=== PATIENT | male | born 1955 | race Caucasian/White ===

== ENCOUNTER 2016-08-31 15:41 | Emergency (ER) | payer SELFPAY ==
[~2016-08-31] VITALS: Ht 177.8 cm; Wt 58.8 kg
[~2016-08-31 15:41] MED LIST: CHOL200024 PO; CYAN10009 PO; MULT1TAB69 PO
--- OUTSIDE RECORDS SUMMARY | 2016-08-31 15:45 | XMS REPORT | Continuity of Care Document ---
Author Author [facility] Organization [facility] Address Unknown Phone Unavailable Support Name Relationship Address Phone JESUS LISA MD Caregiver [address] [place] [address] Unavailable MIGUEL LAY APRN Caregiver [address] [place] [address] Unavailable CARLOS LUNA Next Of Kin Unknown [phone] Insurance Providers Guarantor Reid Mckeon Address [address] [place] [address] Email NO TO PT [facility] [employer] Other Policy Number [id number] Subscriber's Name Reid Mckeon Relationship 18 Self Group Number [id number] Advance Directives Directive Response Recorded Date/Time Advanced Directives Type None 05/20/16 2:30pm Chief Complaint and Reason for Visit Chief Complaint Nausea,Vomiting,Diarrhea Reason for Visit Acute hypoactive alcohol withdrawal delirium Problems Active Problems Medical Problem Onset Date Status Minor head injury Unknown Acute Near syncope Unknown Acute Scalp laceration Unknown Acute Volume depletion Unknown Acute Past Problems Medical Problem Onset Date Acute hypoactive alcohol withdrawal delirium Unknown Alcohol dependence with withdrawal with complication Unknown Alcoholic hepatitis Unknown Malnutrition Unknown Medications Current Home Medications Medication Dose Units Route Directions Days Qty Instructions Start Date Cholecalciferol (Vitamin D3) (Vitamin D) Unknown Strength Tablet Unknown Dose Oral Daily 05/20/16 Cyanocobalamin (Vitamin B-12) (Vitamin B-12) Unknown Strength Tablet Unknown Dose Oral Daily 05/20/16 Multivitamin (Multivitamins) 1 Each Tablet 1 Tab Oral Daily 05/20 Social History Social History Problem Response Recorded Date/Time Onset Date Status Chewing Tobacco Status No 05/20/2016 2:30pm Not Applicable Not Applicable Hx Substance Use No 05/20/2016 2:30pm Not Applicable Not Applicable Hx Alcohol Use Y 5TH OF WHISKEY DAILY 05/20/2016 2:30pm Not Applicable Not Applicable Tobacco Usage smoke 07/10/2015 7:07am Not Applicable Not Applicable Query Response Start Date Stop Date Smoking Status Never smoker Hospital Discharge Instructions No hospital discharge instructions. Plan of Care Discharge Date 01/02/17 5:46pm Disposition 01 DISCHARGED HOME, SELF-CARE Condition at Discharge Improved Instructions/Education Provided Alcohol Use Disorder Prescriptions See Medication Section Referrals MIGUEL LAY APRN Address: [address] [place] [phone] Functional Status No functional status results. Allergies, Adverse Reactions, Alerts No known allergies. Immunizations Query Response on File Recorded Date/Time Hx Tetanus, Diptheria, Pertussis N UNKNOWN 12/16/10 8:41am Hx Tetanus, Diptheria, Pertussis N UNKNOWN 12/16/10 8:41am Influenza Vaccine Hx NOT CURRENT 05/20/16 2:30pm Tdap Vaccine Hx TDAP 07/10/15 7:43am Vital Signs Acute Vital Signs Vital Response Date/Time Temperature (Fahrenheit) 98.1 deg F (96.8 - 99.1) 05/20/2016 5:46pm Temperature (Calculated Celsius) 36.64156 degrees C (36.0 - 37.3) 05/20/2016 5:46pm Pulse Rate (adult) 79 bpm (60 - 100) 05/20/2016 5:46pm Respiratory Rate 24 breaths/min (10 - 20) 05/20/2016 5:46pm O2 Sat by Pulse Oximetry 95 % (90 - 100) 05/20/2016 5:46pm Blood Pressure 158/79 mm Hg 05/20/2016 5:46pm Height (Feet) 5 feet 05/20/2016 2:30pm Height (Inches) 10.00 inches 05/20/2016 2:30pm Weight (Kilograms) 59.900 kg 05/20/2016 2:30pm Body Mass Index (BMI) 18.0 05/20/2016 2:30pm Results Laboratory Results Test Name Result Units Flags Reference Collection Date/Time Result Date/ Time Comments White Blood Count 4.6 T/MM3 4.5-11.0 05/20/2016 2:10pm 05/20/2016 3: 49pm Red Blood Count 3.66 M/MM3 L 4.50-5.90 05/20/2016 2:10pm 05/20/2016 3: 49pm Hemoglobin 12.8 GM/DL L 13.5-17.5 05/20/2016 2:10pm 05/20/2016 3:49pm Hematocrit 38.0 % L 41-53 05/20/2016 2:1005/20/2016 3:49pm Mean Corpuscular Volume 103.8 UM3 H 80-100 05/20/2016 2:10pm 05/20/2016 3:49pm Mean Corpuscular Hemoglobin 35.0 UUG H 26-34 05/20/2016 2:10pm 2016 3:49pm Mean Corpuscular Hemoglobin Concent 33.7 GM/DL 31-37 05/20/2016 2:1005/20/2016 3:49pm RDW Standard Deviation 48.3 FL 36.9-50.2 05/20/2016 2:1005/20/2016 3 :49pm Platelet Count 39 T/MM3 L 130-400 05/20/2016 2:10pm 05/20/2016 3:49pm Mean Platelet Volume 12.0 UM3 9.4-12.4 05/20/2016 2:10pm 05/20/2016 3: 49pm Neutrophils (%) (Auto) 78.2 % H 33-66 05/20/2016 2:1005/20/2016 3: 49pm Lymphocytes (%) (Auto) 13.3 % L 23-45 05/20/2016 2:1005/20/2016 3: 49pm Monocytes (%) (Auto) 8.1 % 0-9.0 05/20/2016 2:10pm 05/20/2016 3:49pm Eosinophils (%) (Auto) 0.0 % 0-4 05/20/2016 2:1005/20/2016 3:49pm Basophils (%) (Auto) 0.2 % 0-2 05/20/2016 2:1005/20/2016 3:49pm Immature Granulocyte % (Auto) 0.2 % 0.0-0.5 05/20/2016 2:10pm 2016 3:49pm Absolute Neutrophils (auto) 3.6 T/MM3 1.8-7.7 05/20/2016 2:10pm 2016 3:49pm Absolute Lymphocytes (auto) 0.6 T/MM3 L 1-4.8 05/20/2016 2:10pm 2016 3:49pm Absolute Monocytes (auto) 0.4 T/MM3 0-0.8 05/20/2016 2:1005/20/2016 3:49pm Absolute Eosinophils (auto) 0.0 T/MM3 0-0.5 05/20/2016 2:10pm 2016 3:49pm Absolute Basophils (auto) 0.0 T/MM3 0-0.2 05/20/2016 2:10pm 05/20/2016 3:49pm Absolute Immature Granulocyte (auto 0.01 T/MM3 0.00-0.03 05/20/2016 2: 1005/20/2016 3:49pm Icterus Index < 2 0-7 05/20/2016 2:1005/20/2016 3:45pm Chemistry Specimen Hemolysis < 15 0-25 05/20/2016 2:1005/20/2016 3 :45pm 0-25: Specimen Exhibited No Hemolysis. Turbidity < 20 0-20 05/20/2016 2:10pm 05/20/2016 3:45pm Sodium Level 145 MEQ/L H 134-144 05/20/2016 2:1005/20/2016 3:45pm Potassium Level 3.6 MEQ/L 3.6-5 05/20/2016 2:1005/20/2016 3:45pm Chloride Level 97 MEQ/L L 98-107 05/20/2016 2:10pm 05/20/2016 3:45pm Carbon Dioxide Level 24 MEQ/L 22-30 05/20/2016 2:10pm 05/20/2016 3: 45pm Anion Gap 24 MEQ/L H 5-15 05/20/2016 2:10pm 05/20/2016 3:45pm Blood Urea Nitrogen 12.0 MG/DL 9-20 05/20/2016 2:1005/20/2016 3: 45pm Creatinine 0.7 MG/DL L 0.8-1.5 05/20/2016 2:1005/20/2016 3:45pm BUN/Creatinine Ratio 17 RATIO 6-26 05/20/2016 2:1005/20/2016 3:45pm Glomerular Filtration Rate Calc 115 05/20/2016 2:10pm 05/20/2016 3: 45pm Glucose Level 111 MG/DL H 75-110 05/20/2016 2:10pm 05/20/2016 3:45pm Calculated Osmolality 280 MOSM/KG 261-280 05/20/2016 2:10pm 05/20/2016 3:45pm Calcium Level 10.3 MG/DL H 8.4-10.2 05/20/2016 2:10pm 05/20/2016 3:45pm Total Bilirubin 1.50 MG/DL H 0.20-1.30 05/20/2016 2:10pm 05/20/2016 3: 45pm Alkaline Phosphatase 113 U/L 38-126 05/20/2016 2:10pm 05/20/2016 3: 45pm Total Protein 8.9 G/DL H 6.3-8.2 05/20/2016 2:10pm 05/20/2016 3:45pm Albumin 5.1 G/DL H 3.5-5.0 05/20/2016 2:10pm 05/20/2016 3:45pm Globulin 3.8 G/DL H 2.4-3.6 05/20/2016 2:10pm 05/20/2016 3:45pm Albumin/Globulin Ratio 1.3 RATIO 1.1-2.2 05/20/2016 2:1005/20/2016 3 :45pm Aspartate Amino Transf (AST/SGOT) 95 U/L H 17-59 05/20/2016 2:10pm 05/20 3:45pm Alanine Aminotransferase (ALT/SGPT) 49 U/L 21-72 05/20/2016 2:10pm 06/2016 3:45pm Alcohol, Quantitative 31 MG/DL <10 05/20/2016 2:10pm 05/20/2016 3:45pm Name: REID MCKEON Unit #: [id number] : [id number] Sex: M Admit Date: Loc / Svc: ED Discharge Date: DIAGNOSTIC IMAGING REPORT Report #: [id number] [facility] Milo ELDON EXAM: ABDOMEN ACUTE (INC. CHEST) LOCATION OF DICTATION: [place] HISTORY: ITS.REASON: abd pain, vomiting COMPARISON: No prior studies available for comparison. TECHNIQUE: FINDINGS: The heart size is normal. Lungs are clear. There is gas and fecal material within the colonic bowel loops. The small bowel loops are normal in caliber. There is no evidence for bowel obstruction or free intraperitoneal air. No abnormal radiopacities overlying the abdomen. Osseous structures are normal. IMPRESSION: 1. Mild fecal retention. No evidence for bowel obstruction or free air. 2. No acute cardiopulmonary abnormalities. . Procedures No known history of procedures. Encounters Encounter Location Arrival/Admit Date Discharge/Depart Date Attending Provider Departed Emergency Room [facility] 05/20/16 2:24pm 05/20/16 5: 46pm JESUS LISA MD Recent Diagnosis
[2016-08-31 15:49] VITALS: Ht 177.8 cm; Wt 58.8 kg
--- NOTE | 2016-08-31 15:55 | NUR ---
PROVIDER DR LISA IN TO SEE PATIENT.
[2016-08-31] MEDS ORDERED: THIAMINE 100 MG, FOLIC ACID 1 MG, MULTI-VIT INF, ADULT 10 ML in NORMAL SALINE 1,000 ML IV ONE ×4 (16:00)
[2016-08-31 16:13] LABS: BASOPHILS # (AUTO) 0.1 T/MM3 (0-0.2); BASOPHILS % (AUTO) 3.8 % (0-2); EOSINOPHILS # (AUTO) 0.2 T/MM3 (0-0.5); EOSINOPHILS % (AUTO) 5.9 % (0-4); HCT - HEMATOCRIT 39.8 % (41-53); HGB - HEMOGLOBIN 13.3 GM/DL (13.5-17.5); IMMATURE GRANULOCYTE # (AUTO) 0.01 T/MM3 (0.00-0.03); IMMATURE GRANULOCYTE % (AUTO) 0.3 % (0.0-0.5); LYMPHOCYTES # (AUTO) 1.7 T/MM3 (1-4.8); LYMPHOCYTES % (AUTO) 57.6 % (23-45); MEAN CORPUSCULAR HGB 34.9 UUG (26-34); MEAN CORPUSCULAR HGB CONC(MCHC 33.4 GM/DL (31-37); MEAN CORPUSCULAR VOLUME 104.5 UM3 (80-100); MEAN PLATELET VOLUME 9.8 UM3 (9.4-12.4); MONOCYTES # (AUTO) 0.2 T/MM3 (0-0.8); MONOCYTES % (AUTO) 5.5 % (0-9.0); NEUTROPHILS #(AUTO)-ABSOLUTE 0.8 T/MM3 (1.8-7.7); NEUTROPHILS % (AUTO) 26.9 % (33-66); RED BLOOD COUNT 3.81 M/MM3 (4.50-5.90); WBC - WHITE BLOOD COUNT 2.9 T/MM3 (4.5-11.0)
[2016-08-31 16:17] LABS: ALBUMIN 4.3 G/DL (3.5-5.0); ALBUMIN/GLOBULIN RATIO 1.1 RATIO (1.1-2.2); ALKALINE PHOSPHATASE 107 U/L (38-126); ALT (SGPT) 69 U/L (21-72); ANION GAP 21 MEQ/L (5-15); AST (SGOT) 142 U/L (17-59); BUN/CREATININE RATIO 14 RATIO (6-26); CALCIUM 8.7 MG/DL (8.4-10.2); CHLORIDE 109 MEQ/L (98-107); CO2 - CARBON DIOXIDE 29 MEQ/L (22-30); CREATININE 0.7 MG/DL (0.8-1.5); GLOMERULAR FILTRATION RATE 115; GLUCOSE 91 MG/DL (75-110); LIPASE 284 U/L (23-300); POTASSIUM 3.9 MEQ/L (3.6-5); SODIUM 159 MEQ/L (134-144); TOTAL PROTEIN 8.1 G/DL (6.3-8.2)
[2016-08-31 16:35] LABS: ACETAMINOPHEN < 10 UG/ML (10-30); PHOSPHORUS 3.8 MG/DL (2.5-4.5); SALICYLATE < 1.0 MG/DL (2-20)
[2016-08-31 16:42] LABS: ETHANOL 495 MG/DL (<10)
--- NOTE | 2016-08-31 17:24 | NUR ---
PROVIDER DR LISA TO BEDSIDE TO DISCUSS POC
--- NOTE | 2016-08-31 17:31 | ERPDOC ---
Departure Disposition Decision Date: Aug 31, 2016 Disposition Decision Time: 17:31 Disposition: 01 DISCHARGED HOME, SELF-CARE Impression Impression Impression: Primary Impression: Alcohol intoxication Severity: Moderate Condition: Stable Seen By: Physician only Referrals: MIGUEL LAY APRN (Family) Patient Instructions: Abuse of Alcohol (ED) Problems/Meds/Labs Reviewed?: Yes Medications reviewed and manag: Yes Additional Instructions: Cut alcohol intake by 50% until he meet with your primary care provider next week. Then continue to cut intake based on their recommendation. Follow up care ordered?: Yes Mental Status: Alert, Oriented HPI - General Medical General Chief Complaint: Substance Abuse Stated Complaint: ETOH Time Seen by Provider: 16:00 HPI - General Medical Initial Comments 61-year-old male presents having drunk one half gallon of bourbon today. He drinks that every day and has been for several months. He fell at home and his girlfriend called EMS and wanted him transported. He denies any injury or pain. He does state that he knows he needs to quit drinking, and was asking the construction crew member about how to quit, but he was told that he was not to stop cold turkey. Allergies: Coded Allergies: No Known Allergies (Unverified , 05/20/16) Past History Past Medical History Respiratory: asthma Infectious: hepatitis C Psychological: alcohol abuse Surgical History Denies Surgeries Vaccines Hx Tetanus, Diptheria, Pertuss: No (UNKNOWN) Social History Substance Use Type: does not use Alcohol Intake: daily Last Drink: hours (ago) Physical Exam General Vitals and Pain First Documented Vital Signs Date Time Temp Pulse Resp B/P Pulse Ox O2 Delivery O2 Flow Rate FiO2 08/31/16 15:49 97.8 71 16 132/84 98 Room Air Weight: Kilograms: 58.800 Height (feet): 5 Height (inches): 10.00 Triage Pain Scale: Progress Results/Orders Orders Procedure Category Date Status Time Cmp - Comprehensive LAB 08/31/16 Complete Metabolic 16:00 Cbc W/Auto LAB 08/31/16 Complete Diff-Reflex Manual 16:00 Ethanol LAB 08/31/16 Complete 16:00 Magnesium LAB 08/31/16 Complete 16:00 Phosphorus LAB 08/31/16 Complete 16:00 Drug Screen LAB 08/31/16 [place]ged [place] [facility] [place] Acetaminophen LAB 08/31/16 Complete 16:00 Salicylate LAB 08/31/16 Complete 16:00 Ua, Dip Wreflex LAB 08/31/16 Logged [employer] 16:00 Lipase LAB 08/31/16 Complete 16:00 Iv Lock (Ed Only) EDM 08/31/16 Transmitted 16:00 Thiamine (Vit. B1)... PHA 08/31/16 Complete 16:00 Lab Results Laboratory Tests Test 08/31/16 15:56 White Blood Count 2.9T/MM3 Red Blood Count 3.81M/MM3 Hemoglobin 13.3GM/DL Hematocrit 39.8% Mean Corpuscular Volume 104.5UM3 Mean Corpuscular Hemoglobin 34.9UUG Mean Corpuscular Hemoglobin Concent 33.4GM/DL RDW Standard Deviation 49.5FL Platelet Count 133T/MM3 Mean Platelet Volume 9.8UM3 Immature Granulocyte % (Auto) 0.3% Neutrophils (%) (Auto) 26.9% Lymphocytes (%) (Auto) 57.6% Monocytes (%) (Auto) 5.5% Eosinophils (%) (Auto) 5.9% Basophils (%) (Auto) 3.8% Absolute Immature Granulocyte (auto 0.01T/MM3 Absolute Neutrophils (auto) 0.8T/MM3 Absolute Lymphocytes (auto) 1.7T/MM3 Absolute Monocytes (auto) 0.2T/MM3 Absolute Eosinophils (auto) 0.2T/MM3 Absolute Basophils (auto) 0.1T/MM3 Turbidity < 20 Sodium Level 159MEQ/L Potassium Level 3.9MEQ/L Chloride Level 109MEQ/L Carbon Dioxide Level 29MEQ/L Anion Gap 21MEQ/L Blood Urea Nitrogen 10.0MG/DL Creatinine 0.7MG/DL Glomerular Filtration Rate Calc 115 BUN/Creatinine Ratio 14RATIO Glucose Level 91MG/DL Calculated Osmolality 304MOSM/KG Calcium Level 8.7MG/DL Phosphorus Level 3.8MG/DL Magnesium Level 2.0MG/DL Total Bilirubin 0.50MG/DL Icterus Index < 2 Aspartate Amino Transf (AST/SGOT) 142U/L Alanine Aminotransferase (ALT/SGPT) 69U/L Alkaline Phosphatase 107U/L Total Protein 8.1G/DL Albumin 4.3G/DL Globulin 3.8G/DL Albumin/Globulin Ratio 1.1RATIO Lipase 284U/L Chemistry Specimen Hemolysis < 15 Salicylates Level < 1.0MG/DL Acetaminophen Level < 10UG/ML Alcohol, Quantitative 495MG/DL Medications Current ED Medications Thiamine HCl/ Folic Acid/ Multivitamins/ Minerals/Sodium Chloride (Vit. B1/ Folate/ M.v.i. Adult/ Normal Saline IV) 1,011.2 ml @ 1,000 mls/ hr O ONCE IV Last administered on 08/31/16t 16:49; Start 08/31/16 at 16:00; Stop 08/31/16 at 17:00; Status DC Progress Progress Full-body survey completed, no acute injuries noted. Patient does have multiple bruises of different ages, but no acute abrasions. He does not want any x-rays done and I don't feel that there are any joints that merit x-ray at this time acutely. Tabs were obtained, patient does have obvious iron deficiency, B12 and folate deficiency. He was given banana bag 1 L IV while in the emergency department. He has also been given cyanocobalamin 1 mL IM. We discussed options for alcohol cessation including tapering on his own, working through his physician, or going to an inpatient rehabilitation. He would like to work through his physician, he agreed to call on Friday. I recommended he cut his drinking in half until he see his physician early next week. JESUS LISA MD Aug 31, 2016 17:31
[2016-08-31] MEDS ORDERED: CYANOCOBALAMIN (B-12) 1000mcg/ml INJECTION IM ONE (17:45)
[2016-08-31 18:09] VITALS: BP 137/87; PULSE 72; RESP 16; TEMP 97.8; O2SAT 98
--- NOTE | 2016-09-03 16:21 | NUR ---
CM THIS WORKER RECEIVED A CALL FROM MATT ON THIS DATE. THIS WORKER ALSO SPOKE WITH GIRLFRIEND OF PT AT PT'S REQUEST. PT REPORTED THAT HE MAYBE INTERESTED IN TREATMENT FOR ALCOHOL. PT WAS CONCERNED ABOUT LOSING HIS HOME AND BEING HOMELESS. THIS WORKER PROVIDED PHONE NUMBERS FOR HOMELESS [facility] AND DRUG AND ALCOHOL TREATMENT TO GIRLFRIEND AT PT'S REQUEST. PT REPORTED THAT HE IS ABLE TO GET AROUND VERY LITTLE, BUT IS ABLE TO GET TO THE BATHROOM. THIS WORKER OFFERED ADDITIONAL RESOURCES IF NEEDED WITH PT AND GIRLFRIEND. THIS WORKER ENCOURAGED PT TO GO AND SEE PRIMARY CARE DOCTOR RECOMMENDED. GIRLFRIEND ACKNOWLEDGED THIS AND WOULD TRY AND GET HIM TO THE DOCTOR. THIS WORKER PROVIDED THIS WORKER'S CONTACT NUMBER AND ENCOURAGED TO CONTACT WITH ANY ADDITIONAL NEEDS. Addendum: 09/03/16 at 1626 by AGA MATHEW Amended: Links added.
== END 2016-08-31 18:09 | disposition home or self-care (01) ==
LOC: ED 15:41
DX: F10.129 Alcohol abuse with intoxication, unspecified (principal); Y90.9 Presence of alcohol in blood, level not specified; E61.1 Iron deficiency; E53.8 Deficiency of other specified B group vitamins; W19.XXXA Unspecified fall, initial encounter; Y93.9 Activity, unspecified; Y92.009 Unspecified place in unspecified non-institutional (private) residence as the place of occurrence of the external cause; Y99.8 Other external cause status
CPT/HCPCS: 80053; 80307; 83690; 83735; 84100; 85025; 96372

== ENCOUNTER 2016-09-09 18:39 | Emergency (ER) | payer SELFPAY ==
[~2016-09-09] VITALS: Ht 180.3 cm; Wt 56.2 kg
[2016-09-09 18:39] VITALS: Ht 180.3 cm; Wt 56.2 kg
--- OUTSIDE RECORDS SUMMARY | 2016-09-09 18:43 | XMS REPORT | Continuity of Care Document ---
Author Author [facility] Organization [facility] Address Unknown Phone Unavailable Support Name Relationship Address Phone JESUS LISA MD Caregiver [address] [place] [address] Unavailable MIGUEL LAY APRN Caregiver [address] [place] [address] Unavailable CARLOS LUNA Next Of Kin Unknown [phone] Insurance Providers Guarantor Reid Mckeon Address [address] [place] [address] Email DENIED 16 Payer Self Pay Subscriber's Name Reid Mckeon Relationship 18 Self Chief Complaint and Reason for Visit Chief Complaint Substance Abuse Reason for Visit Alcohol intoxication Problems Active Problems Medical Problem Onset Date Status Minor head injury Unknown Acute Near syncope Unknown Acute Scalp laceration Unknown Acute Volume depletion Unknown Acute Past Problems Medical Problem Onset Date Acute hypoactive alcohol withdrawal delirium Unknown Alcohol dependence with withdrawal with complication Unknown Alcohol intoxication Unknown Alcoholic hepatitis Unknown Malnutrition Unknown Medications [...] Problem Response Recorded Date/Time Onset Date Status Hx Substance Use No 08/31/2016 4:19pm Not Applicable Not Applicable Hx Alcohol Use Y 5TH OF WHISKEY DAILY 08/31/2016 4:19pm Not Applicable Not Applicable Tobacco Usage smoke 07/10/2015 7:07am Not Applicable Not Applicable Query Response Start Date Stop Date Smoking Status Never smoker Hospital Discharge Instructions No hospital discharge instructions. Plan of Care Discharge Date 08/31/16 6:09pm Disposition 01 DISCHARGED HOME, SELF-CARE Condition at Discharge Stable Instructions/Education Provided Abuse of Alcohol (ED) Prescriptions See Medication Section Referrals MIGUEL LAY APRN Address: [address] [place] [phone] Additional Instructions/Education Cut alcohol intake by 50% until he meet with your primary care provider next week. Then continue to cut intake based on their recommendation. Functional Status No functional status results. Allergies, Adverse Reactions, Alerts No known allergies. Immunizations Query Response on File Recorded Date/Time Hx Tetanus, Diptheria, Pertussis N UNKNOWN 12/16/10 8:41am Hx Tetanus, Diptheria, Pertussis N UNKNOWN 12/16/10 8:41am Influenza Vaccine Hx NOT CURRENT 08/31/16 4:19pm Tdap Vaccine Hx TDAP 07/10/15 7:43am Vital Signs Acute Vital Signs Vital Response Date/Time Temperature (Fahrenheit) 97.8 deg F (96.8 - 99.1) 08/31/2016 6:09pm Temperature (Calculated Celsius) 36.35078 degrees C (36.0 - 37.3) 08/31/2016 6:09pm Pulse Rate (adult) 72 bpm (60 - 100) 08/31/2016 6:09pm Respiratory Rate 16 breaths/min (10 - 20) 08/31/2016 6:09pm O2 Sat by Pulse Oximetry 98 % (90 - 100) 08/31/2016 6:09pm Blood Pressure 137/87 mm Hg 08/31/2016 6:09pm Height (Feet) 5 feet 08/31/2016 3:49pm Height (Inches) 10.00 inches 08/31/2016 3:49pm Weight (Kilograms) 58.800 kg 08/31/2016 3:49pm Body Mass Index (BMI) 18.0 08/31/2016 3:49pm Results Laboratory Results Test Name Result Units Flags Reference Collection Date/Time Result Date/ Time Comments White Blood Count 2.9 T/MM3 L 4.5-11.0 08/31/2016 3:56pm 08/31/2016 4: 13pm Red Blood Count 3.81 M/MM3 L 4.50-5.90 08/31/2016 3:56pm 08/31/2016 4: 13pm Hemoglobin 13.3 GM/DL L 13.5-17.5 08/31/2016 3:56pm 08/31/2016 4:13pm Hematocrit 39.8 % L 41-53 08/31/2016 3:56pm 08/31/2016 4:13pm Mean Corpuscular Volume 104.5 UM3 H 80-100 08/31/2016 3:5608/31/2016 4:13pm Mean Corpuscular Hemoglobin 34.9 UUG H 26-34 08/31/2016 3:56pm 2016 4:13pm Mean Corpuscular Hemoglobin Concent 33.4 GM/DL 31-37 08/31/2016 3:56pm 08/31/2016 4:13pm RDW Standard Deviation 49.5 FL 36.9-50.2 08/31/2016 3:5608/31/2016 4 :13pm Platelet Count 133 T/MM3 130-400 08/31/2016 3:5608/31/2016 4:13pm Mean Platelet Volume 9.8 UM3 9.4-12.4 08/31/2016 3:56pm 08/31/2016 4: 13pm Neutrophils (%) (Auto) 26.9 % L 33-66 08/31/2016 3:56pm 08/31/2016 4: 13pm Lymphocytes (%) (Auto) 57.6 % H 23-45 08/31/2016 3:pm 08/31/2016 4: 13pm Monocytes (%) (Auto) 5.5 % 0-9.0 08/31/2016 3:pm 08/31/2016 4:13pm Eosinophils (%) (Auto) 5.9 % H 0-4 08/31/2016 3:pm 08/31/2016 4:13pm Basophils (%) (Auto) 3.8 % H 0-2 08/31/2016 3:08/31/2016 4:13pm Immature Granulocyte % (Auto) 0.3 % 0.0-0.5 08/31/2016 3:2016 4:13pm Absolute Neutrophils (auto) 0.8 T/MM3 L 1.8-7.7 08/31/2016 3:56pm 2016 4:13pm Absolute Lymphocytes (auto) 1.7 T/MM3 1-4.8 08/31/2016 3:56pm 2016 4:13pm Absolute Monocytes (auto) 0.2 T/MM3 0-0.8 08/31/2016 3:56pm 08/31/2016 4:13pm Absolute Eosinophils (auto) 0.2 T/MM3 0-0.5 08/31/2016 3:56pm 2016 4:13pm Absolute Basophils (auto) 0.1 T/MM3 0-0.2 08/31/2016 3:56pm 08/31/2016 4:13pm Absolute Immature Granulocyte (auto 0.01 T/MM3 0.00-0.03 08/31/2016 3: 56pm 08/31/2016 4:13pm Icterus Index < 2 0-7 08/31/2016 3:56pm 08/31/2016 4:17pm Chemistry Specimen Hemolysis < 15 0-25 08/31/2016 3:56pm 08/31/2016 4 :17pm 0-25: Specimen Exhibited No Hemolysis. Turbidity < 20 0-20 08/31/2016 3:56pm 08/31/2016 4:17pm Sodium Level 159 MEQ/L H 134-144 08/31/2016 3:56pm 08/31/2016 4:17pm Potassium Level 3.9 MEQ/L 3.6-5 08/31/2016 3:08/31/2016 4:17pm Chloride Level 109 MEQ/L H 98-107 08/31/2016 3:pm 08/31/2016 4:17pm Carbon Dioxide Level 29 MEQ/L 22-30 08/31/2016 3:pm 08/31/2016 4: 17pm Anion Gap 21 MEQ/L H 5-15 08/31/2016 3:56pm 08/31/2016 4:17pm Blood Urea Nitrogen 10.0 MG/DL 9-20 08/31/2016 3:pm 08/31/2016 4: 17pm Creatinine 0.7 MG/DL L 0.8-1.5 08/31/2016 3:08/31/2016 4:17pm BUN/Creatinine Ratio 14 RATIO 6-26 08/31/2016 3:pm 08/31/2016 4:17pm Glomerular Filtration Rate Calc 115 08/31/2016 3:08/31/2016 4: 17pm Glucose Level 91 MG/DL 75-110 08/31/2016 3:56pm 08/31/2016 4:17pm Calculated Osmolality 304 MOSM/KG H 261-280 08/31/2016 3:pm 2016 4:17pm Calcium Level 8.7 MG/DL 8.4-10.2 08/31/2016 3:5608/31/2016 4:17pm Phosphorus Level 3.8 MG/DL 2.5-4.5 08/31/2016 3:08/31/2016 4:35pm Total Bilirubin 0.50 MG/DL 0.20-1.30 08/31/2016 3:pm 08/31/2016 4: 17pm Alkaline Phosphatase 107 U/L 38-126 08/31/2016 3:08/31/2016 4: 17pm Total Protein 8.1 G/DL 6.3-8.2 08/31/2016 3:pm 08/31/2016 4:17pm Albumin 4.3 G/DL 3.5-5.0 08/31/2016 3:08/31/2016 4:17pm Globulin 3.8 G/DL H 2.4-3.6 08/31/2016 3:pm 08/31/2016 4:17pm Albumin/Globulin Ratio 1.1 RATIO 1.1-2.2 08/31/2016 3:08/31/2016 4 :17pm Aspartate Amino Transf (AST/SGOT) 142 U/L H 17-59 08/31/2016 3:pm 4:17pm Alanine Aminotransferase (ALT/SGPT) 69 U/L 21-72 08/31/2016 3: 4:17pm Lipase 284 U/L 23-300 08/31/2016 3:08/31/2016 4:17pm Magnesium Level 2.0 MG/DL 1.6-2.3 08/31/2016 3:08/31/2016 4:17pm Acetaminophen Level < 10 UG/ML L 10-30 08/31/2016 3:08/31/2016 4: 35pm TOXIC <4 HR POST INGESTION: >150 MG/L; TOXIC <12 HR POST INGESTION: >50 MG/L Salicylates Level < 1.0 MG/DL L 2-20 08/31/2016 3:pm 08/31/2016 4: 35pm Alcohol, Quantitative 495 MG/DL <10 08/31/2016 3:08/31/2016 4: 42pm Procedures No known history of procedures. Encounters Encounter Location Arrival/Admit Date Discharge/Depart Date Attending Provider Departed Emergency Room [facility] 08/31/16 3:41pm 08/31/16 6: 09pm JESUS LISA MD Recent Diagnosis
--- NOTE | 2016-09-09 18:44 | NUR ---
PROVIDER DR PRITCHETT IN TO SEE PATIENT.
--- NOTE | 2016-09-09 18:51 | ERPDOC ---
Departure Disposition Decision Date: Sep 09, 2016 Disposition Decision Time: 20:20 Disposition: 01 DISCHARGED HOME, SELF-CARE Impression Impression Impression: Primary Impression: Alcoholic pancreatitis Chronicity: acute Acute pancreatitis complication: no infection or necrosis Qualified Codes: K85.20 - Alcohol induced acute pancreatitis without necrosis or infection Additional Impressions: Thrombocytopenia concurrent with and due to alcoholism Chronic alcohol abuse Severity: Mild Condition: Improved Seen By: Physician only Referrals: MIGUEL LAY APRN (Family) Patient Instructions: Abuse of Alcohol (ED) Problems/Meds/Labs Reviewed?: Yes Medications reviewed and manag: Yes Additional Instructions: Take Pepcid 20 mg, 2 tablets every day to reduce stomach acid Zofran 4 mg one tablet every 6 hours as needed for nausea Continue to decrease her alcohol intake as much as possible Contact [facility] for out patient alcohol rehab assistance. If you need help with detox while intoxicated call or present to [facility] ( [facility]stance Abuse [facility]) [phone] - [address], [address], [place]. Follow up care ordered?: Yes Mental Status: Alert Scripts Ondansetron (Zofran Odt) 4 Mg Tab.rapdis 4 MG PO Q6HR, #20 TAB Oral disintegrating tablet Prov: RAFAT PRITCHETT MD 09/09/16 Famotidine (Pepcid) 20 Mg Tablet 40 MG PO DAILY, #60 TAB 0 Refills Prov: RAFAT PRITCHETT MD 09/09/16 HPI - General Medical General Chief Complaint: Substance Abuse Stated Complaint: ETOH Time Seen by Provider: 18:41 Source: patient, EMS Exam Limitations: intoxication HPI - General Medical Initial Comments Patient has history of severe alcohol abuse, and is seen in the ER frequently for this. Today the patient presents by EMS after his girlfriend that he lives with called EMS for possible fall with alcohol intoxication. Patient denies falling, but does state that he has been sick to his stomach more in the past week, so much so today that he has only been able to drink a fifth of hard liquor rather than his normal one gallon. She does not seeking treatment for his alcohol abuse, which he admits to, but is concerned about his stomach. Patient thinks that he may have hep C, but this diagnosis is unclear as he has been told that he had a by one physician and that he did not have a by another. Occurred At: home Onset: Gradual Duration: 1 week Severity: moderate Associated Symptoms: DENIES: chest pain, cough, diaphoresis, fever/chills, headaches, loss of appetite, malaise, nausea/vomiting, rash, seizure, shortness of breath, syncope, weakness Hx of Similar Symptoms: Yes Allergies: Coded Allergies: No Known Allergies (Unverified , 09/09/16) Past History Patient Medical History Problem List Updates: Hepatitis C Chronic alcoholism Past Medical History Respiratory: asthma Infectious: hepatitis C Psychological: alcohol abuse Surgical History Denies Surgeries Vaccines Hx Tetanus, Diptheria, Pertuss: No (UNKNOWN) Social History Smoking Status: Never smoker Does patient use chewing tobac: No Second Hand Exposure: No Substance Use Type: does not use Alcohol Intake: daily Last Drink: hours (ago) Record Review Pertinent history updated: Yes Review of Systems Constitutional Constitutional: DENIES: appetite decrease, appetite increase, chills, dizziness , fever, weakness ENMT Ears: DENIES: pain Hearing: DENIES: hearing loss, tinnitus Balance: DENIES: vertigo Mouth/Throat: DENIES: change in swallowing, change in voice, hoarsness, painful swallowing, sore throat Cardiovascular Cardiac: DENIES: chest pain, dyspnea on exertion Rhythm/Rate: DENIES: irregular beat, palpitations, tachycardia Vascular: DENIES: pedal edema Pulmonary Respiratory: DENIES: cough, dyspnea, pleuritic chest pain GI Upper Abdomen: nausea, vomiting (by history only, no current symptoms), DENIES : dysphagia, food intolerances, heartburn/indigestion, hematemesis, pain Lower Abdomen: DENIES: blood in stool, femi-colored stools, constipation, diarrhea, melena, pain, painful BM General: DENIES: burning, dysuria, frequency, pain, urgency Musculoskeletal General: DENIES: cramps, joint pain, joint swelling, pain, weakness Integumentary Skin: DENIES: rash, sores Neurological General: DENIES: headache, numbness, tingling, vertigo, weakness Psychiatric Psychiatric: DENIES: anxiety, depression, nervousness Physical Exam General General Nourishment: well nourished, well developed, appears stated age, no acute distress General Body Habitus: well groomed Vitals and Pain First Documented Vital Signs Date Time Temp Pulse Resp B/P Pulse Ox O2 Delivery O2 Flow Rate FiO2 09/09/16 18:39 97.2 86 16 132/87 93 Room Air Weight: Kilograms: Height (feet): 5 Height (inches): 10.00 Triage Pain Scale: RN VS reviewed by Provider: Yes Comments Patient appears acutely intoxicated with glazed eyes,: His breath, and slurred speech. Normal Exams: Eyes: Pupils are PERRLA w/ EOMI, No scleral icterus, irritation, or foreign bodies noted ENMT: No facial trauma, nasal exudates, pharyngeal erythema, or exudates are noted Neck: Full range of motion, without adenopathy, JVD, bruits or thyromegaly Chest/Resp: Clear all almodovar, with good airflow, and symmetry bilaterally CV: Regular rate and rhythm, without murmur or gallop, Pulses 2+ all extremities, capillary refill, <2 seconds all ext., no pedal edema noted Abdomen: Bowel sounds positive, soft, non-tender, non-distended, no hepatosplenomegaly, masses or bruits noted Lymphatic: No lymphadenopathy, or lymphedema noted Musculoskeletal: No tenderness, or deformity noted, good range of motion, all extremities Integumentary: No rashes, hives, or bruising noted, hair and nails, without abnormality Neurologic: Patient is alert, and oriented, cranial nerves, motor/sensory/ cerebellar, exams w/o gross deficits, to observation Psychiatric: Patient exhibits, appropriate attention, emotion and affect Eyes (brief) Comments Patient has multiple contusions to the face that are all old, as the patient does have frequent falls. Patient denies any falls today, has no headache, no decreased mental status. Progress Results/Orders Orders Procedure Category Date Status Time Iv Lock (Ed Only) EDM 09/09/16 Transmitted 18:46 Cbc W/Auto LAB 09/09/16 Complete Diff-Reflex Manual Cmp - Comprehensive LAB 09/09/16 Complete Metabolic Lipase LAB 09/09/16 Complete Ethanol LAB 09/09/16 Complete Ondansetron Inj PHA 09/09/16 Complete (Zofran) 19:00 Ranitidine (Zantac) PHA 09/09/16 Complete 19:00 Lab Results Laboratory Tests Test 09/09/16 18:56 White Blood Count 2.7T/MM3 Red Blood Count 3.52M/MM3 Hemoglobin 12.3GM/DL Hematocrit 36.1% Mean Corpuscular Volume 102.6UM3 Mean Corpuscular Hemoglobin 34.9UUG Mean Corpuscular Hemoglobin Concent 34.1GM/DL RDW Standard Deviation 46.6FL Platelet Count 31T/MM3 Mean Platelet Volume 11.1UM3 Immature Granulocyte % (Auto) 0.4% Neutrophils (%) (Auto) 34.3% Lymphocytes (%) (Auto) 50.9% Monocytes (%) (Auto) 9.1% Eosinophils (%) (Auto) 4.2% Basophils (%) (Auto) 1.1% Absolute Immature Granulocyte (auto 0.01T/MM3 Absolute Neutrophils (auto) 0.9T/MM3 Absolute Lymphocytes (auto) 1.4T/MM3 Absolute Monocytes (auto) 0.2T/MM3 Absolute Eosinophils (auto) 0.1T/MM3 Absolute Basophils (auto) 0.0T/MM3 Turbidity < 20 Sodium Level 149MEQ/L Potassium Level 3.3MEQ/L Chloride Level 102MEQ/L Carbon Dioxide Level 28MEQ/L Anion Gap 19MEQ/L Blood Urea Nitrogen 6.0MG/DL Creatinine 0.7MG/DL Glomerular Filtration Rate Calc 115 BUN/Creatinine Ratio 9RATIO Glucose Level 118MG/DL Calculated Osmolality 285MOSM/KG Calcium Level 9.9MG/DL Total Bilirubin 1.00MG/DL Icterus Index < 2 Aspartate Amino Transf (AST/SGOT) 208U/L Alanine Aminotransferase (ALT/SGPT) 88U/L Alkaline Phosphatase 105U/L Total Protein 7.8G/DL Albumin 4.3G/DL Globulin 3.5G/DL Albumin/Globulin Ratio 1.2RATIO Lipase 495U/L Chemistry Specimen Hemolysis < 15 Alcohol, Quantitative 426MG/DL Medications Current ED Medications Ondansetron HCl (Zofran) 4 mg O ONCE IV Last administered on 09/09/16 19:00; Start 09/09/16 at 19:00; Stop 09/09/16 at 19:01; Status DC Ranitidine HCl (Zantac) 300 mg O ONCE PO Last administered on 09/09/16 19:00 ; Start 09/09/16 at 19:00; Stop 09/09/16 at 19:01; Status DC Progress Progress Patient is given 1 L normal saline IV fluid bolus with Zofran 4 mg and Zantac 300 mg - EtOH - elevated 426 CBC - chronic changes of alcoholism including alcoholic thrombocytopenia CMP/L - electrolyte abdomen is consistent with dehydration and alcohol abuse. Eyepieces slightly elevated in the 400s, liver enzymes are slightly elevated as well. After medications and fluids patient states he is feeling much better, dismissed with prescription for Pepcid 40 mg daily, Zofran as needed, and given contact information for Kenia velazquez as well as [facility] for alcohol rehabilitation. RAFAT PRITCHETT MD Sep 09, 2016 18:51
[2016-09-09] MEDS ORDERED: ONDANSETRON 4mg/2ml INJECTION IV ONE (19:00)
[2016-09-09] MEDS ORDERED: RANITIDINE 150 MG TABLET PO ONE (19:00)
[2016-09-09 19:12] LABS: ALBUMIN 4.3 G/DL (3.5-5.0); ALBUMIN/GLOBULIN RATIO 1.2 RATIO (1.1-2.2); ALKALINE PHOSPHATASE 105 U/L (38-126); ALT (SGPT) 88 U/L (21-72); ANION GAP 19 MEQ/L (5-15); AST (SGOT) 208 U/L (17-59); BUN/CREATININE RATIO 9 RATIO (6-26); CALCIUM 9.9 MG/DL (8.4-10.2); CHLORIDE 102 MEQ/L (98-107); CO2 - CARBON DIOXIDE 28 MEQ/L (22-30); CREATININE 0.7 MG/DL (0.8-1.5); GLOMERULAR FILTRATION RATE 115; GLUCOSE 118 MG/DL (75-110); POTASSIUM 3.3 MEQ/L (3.6-5); SODIUM 149 MEQ/L (134-144); TOTAL PROTEIN 7.8 G/DL (6.3-8.2)
[2016-09-09 19:20] LABS: ETHANOL 426 MG/DL (<10)
[2016-09-09] MEDS ORDERED: NO ROUTINE MEDS (19:21)
[2016-09-09 19:23] LABS: LIPASE 495 U/L (23-300)
[2016-09-09 20:11] LABS: BASOPHILS % (AUTO) 1.1 % (0-2); EOSINOPHILS # (AUTO) 0.1 T/MM3 (0-0.5); EOSINOPHILS % (AUTO) 4.2 % (0-4); HCT - HEMATOCRIT 36.1 % (41-53); HGB - HEMOGLOBIN 12.3 GM/DL (13.5-17.5); IMMATURE GRANULOCYTE # (AUTO) 0.01 T/MM3 (0.00-0.03); IMMATURE GRANULOCYTE % (AUTO) 0.4 % (0.0-0.5); LYMPHOCYTES # (AUTO) 1.4 T/MM3 (1-4.8); LYMPHOCYTES % (AUTO) 50.9 % (23-45); MEAN CORPUSCULAR HGB 34.9 UUG (26-34); MEAN CORPUSCULAR HGB CONC(MCHC 34.1 GM/DL (31-37); MEAN CORPUSCULAR VOLUME 102.6 UM3 (80-100); MEAN PLATELET VOLUME 11.1 UM3 (9.4-12.4); MONOCYTES # (AUTO) 0.2 T/MM3 (0-0.8); MONOCYTES % (AUTO) 9.1 % (0-9.0); NEUTROPHILS #(AUTO)-ABSOLUTE 0.9 T/MM3 (1.8-7.7); NEUTROPHILS % (AUTO) 34.3 % (33-66); RED BLOOD COUNT 3.52 M/MM3 (4.50-5.90); WBC - WHITE BLOOD COUNT 2.7 T/MM3 (4.5-11.0)
--- NOTE | 2016-09-09 20:20 | NUR ---
COMMUNICATION NURSE SPEAKS TO FEMALE ON THE PHONE, WANTS TO KNOW IF PT IS GOING TO BE DISCHARGED. PROVIDER STATES THAT THE PT WILL BE READY TO GO SHORTLY AND FEMALE STATES SHE IS ATTEMPTING TO FIND A RIDE TO COME AND GET THE PT.
[2016-09-09] MEDS ORDERED: ONDA4TAB7 PO (20:25)
[2016-09-09] MEDS ORDERED: FAMO-137 PO (20:25)
[2016-09-09] MEDS ORDERED: ONDANSETRON ODT 4mg #3 (PrePack) SENT HOME ONE (20:30)
[2016-09-09 21:00] VITALS: BP 116/78; PULSE 61; RESP 16; TEMP 97.2; O2SAT 94
--- OUTSIDE RECORDS SUMMARY | 2016-09-09 22:08 | XMS REPORT | Continuity of Care Document ---
Author Author [facility] Organization [facility] Address Unknown Phone Unavailable Support Name Relationship Address Phone RAFAT PRITCHETT MD Caregiver [address] [place] [address] Unavailable MIGUEL LAY APRN Caregiver [address] [place] [address] Unavailable CARLOS LUNA Next Of Kin Unknown [phone] Insurance Providers Guarantor Reid Mckeon Address [address] [place] [address] Email DENIED 16 Payer Self Pay Subscriber's Name Reid Mckeon Relationship 18 Self Advance Directives Directive Response Recorded Date/Time Advanced Directives Type None 09/09/16 6:39pm Chief Complaint and Reason for Visit Chief Complaint Substance Abuse Reason for Visit [id number] Thrombocytopenia concurrent with and due to alcoholism Chronic alcohol abuse Problems Active Problems Medical Problem Onset Date Status Minor head injury Unknown Acute Near syncope Unknown Acute Scalp laceration Unknown Acute Volume depletion Unknown Acute Past Problems Medical Problem Onset Date Acute hypoactive alcohol withdrawal delirium Unknown Alcohol dependence with withdrawal with complication Unknown Alcohol intoxication Unknown Alcoholic hepatitis Unknown Alcoholic pancreatitis Unknown Chronic alcohol abuse Unknown Malnutrition Unknown Thrombocytopenia concurrent with and due to alcoholism Unknown Medications Current Home Medications Medication Dose Units Route Directions Days Qty Instructions Start Date Famotidine (Pepcid) 20 Mg Tablet 40 Mg Oral Daily 60 Tablet No Routine Meds 09/09/16 Ondansetron (Zofran Odt) 4 Mg Tab.rapdis 4 Mg Oral Q6h/0300,0900,1500,2100 20 Tablet Oral disintegrating tablet 09/09/16 Social History Social History Problem Response Recorded Date/Time Onset Date Status Hx Substance Use No 09/09/2016 8:00pm Not Applicable Not Applicable Hx Alcohol Use Y 5TH OF WHISKEY DAILY 09/09/2016 8:00pm Not Applicable Not Applicable Tobacco Usage smoke 07/10/2015 7:07am Not Applicable Not Applicable Query Response Start Date Stop Date Smoking Status Never smoker Hospital Discharge Instructions No hospital discharge instructions. Plan of Care Discharge Date 09/09/16 9:00pm Disposition 01 DISCHARGED HOME, SELF-CARE Condition at Discharge Improved Instructions/Education Provided Abuse of Alcohol (ED) Prescriptions See Medication Section Referrals MIGUEL LAY APRN Address: [address] [place] [phone] [facility] Additional Instructions/Education Take Pepcid 20 mg, 2 tablets every day to reduce stomach acid Zofran 4 mg one tablet every 6 hours as needed for nausea Continue to decrease her alcohol intake as much as possible Contact [facility] for out patient alcohol rehab assistance. If you need help with detox while intoxicated call or present to [facility] ([facility]) [phone] - [address], [address], [place]. Care Plan and Goals Physician Care Plan Problem: Chronic alcoholism with alcoholic pancreatitis, alcoholic thrombocytopenia Goal: Follow up with primary care provider Instructions: Take medications and follow care plan as discussed/written Take Pepcid 20 mg, 2 tablets every day to reduce stomach acid Zofran 4 mg one tablet every 6 hours as needed for nausea Continue to decrease her alcohol intake as much as possible Contact [facility] for out patient alcohol rehab assistance. If you need help with detox while intoxicated call or present to [facility] ([facility]) [phone] - [address], [address], [place]. Functional Status No functional status results. Allergies, Adverse Reactions, Alerts No known allergies. Immunizations Query Response on File Recorded Date/Time Hx Tetanus, Diptheria, Pertussis N UNKNOWN 12/16/10 8:41am Hx Tetanus, Diptheria, Pertussis N UNKNOWN 12/16/10 8:41am Influenza Vaccine Hx NOT CURRENT 09/09/16 8:00pm Tdap Vaccine Hx TDAP 07/10/15 7:43am Vital Signs Acute Vital Signs Vital Response Date/Time Temperature (Fahrenheit) 97.2 deg F (96.8 - 99.1) 09/09/2016 9:00pm Temperature (Calculated Celsius) 36.72541 degrees C (36.0 - 37.3) 09/09/2016 9:00pm Pulse Rate (adult) 61 bpm (60 - 100) 09/09/2016 9:00pm Respiratory Rate 16 breaths/min (10 - 20) 09/09/2016 9:00pm O2 Sat by Pulse Oximetry 94 % (90 - 100) 09/09/2016 9:00pm Blood Pressure 116/78 mm Hg 09/09/2016 9:00pm Height (Feet) 5 feet 09/09/2016 6:39pm Height (Inches) 11.00 inches 09/09/2016 6:39pm Weight (Kilograms) 56.200 kg 09/09/2016 6:39pm Body Mass Index (BMI) 17.0 09/09/2016 6:39pm Results Laboratory Results Test Name Result Units Flags Reference Collection Date/Time Result Date/ Time Comments Phosphorus Level 3.8 MG/DL 2.5-4.5 08/31/2016 3:56pm 08/31/2016 4:35pm Magnesium Level 2.0 MG/DL 1.6-2.3 08/31/2016 3:56pm 08/31/2016 4:17pm Acetaminophen Level < 10 UG/ML L 10-30 08/31/2016 3:56pm 08/31/2016 4: 35pm TOXIC <4 HR POST INGESTION: >150 MG/L; TOXIC <12 HR POST INGESTION: >50 MG/L Salicylates Level < 1.0 MG/DL L 2-20 08/31/2016 3:56pm 08/31/2016 4: 35pm White Blood Count 2.7 T/MM3 L 4.5-11.0 09/09/2016 6:56pm 09/09/2016 8: 12pm Red Blood Count 3.52 M/MM3 L 4.50-5.90 09/09/2016 6:56pm 09/09/2016 8: 12pm Hemoglobin 12.3 GM/DL L 13.5-17.5 09/09/2016 6:56pm 09/09/2016 8:12pm Hematocrit 36.1 % L 41-53 09/09/2016 6:56pm 09/09/2016 8:12pm Mean Corpuscular Volume 102.6 UM3 H 80-100 09/09/2016 6:56pm 09/09/2016 8:12pm Mean Corpuscular Hemoglobin 34.9 UUG H 26-34 09/09/2016 6:56pm 2016 8:12pm Mean Corpuscular Hemoglobin Concent 34.1 GM/DL 31-37 09/09/2016 6:5609/09/2016 8:12pm RDW Standard Deviation 46.6 FL 36.9-50.2 09/09/2016 6:5609/09/2016 8 :12pm Platelet Count 31 T/MM3 D L 130-400 09/09/2016 6:5609/09/2016 8:12pm Mean Platelet Volume 11.1 UM3 9.4-12.4 09/09/2016 6:5609/09/2016 8: 12pm Neutrophils (%) (Auto) 34.3 % 33-66 09/09/2016 6:5609/09/2016 8: 12pm Lymphocytes (%) (Auto) 50.9 % H 23-45 09/09/2016 6:09/09/2016 8: 12pm Monocytes (%) (Auto) 9.1 % H 0-9.0 09/09/2016 6:09/09/2016 8:12pm Eosinophils (%) (Auto) 4.2 % H 0-4 09/09/2016 6:09/09/2016 8:12pm Basophils (%) (Auto) 1.1 % 0-2 09/09/2016 6:09/09/2016 8:12pm Immature Granulocyte % (Auto) 0.4 % 0.0-0.5 09/09/2016 6:2016 8:12pm Absolute Neutrophils (auto) 0.9 T/MM3 L 1.8-7.7 09/09/2016 6:2016 8:12pm Absolute Lymphocytes (auto) 1.4 T/MM3 1-4.8 09/09/2016 6:2016 8:12pm Absolute Monocytes (auto) 0.2 T/MM3 0-0.8 09/09/2016 6:09/09/2016 8:12pm Absolute Eosinophils (auto) 0.1 T/MM3 0-0.5 09/09/2016 6:2016 8:12pm Absolute Basophils (auto) 0.0 T/MM3 0-0.2 09/09/2016 6:5609/09/2016 8:12pm Absolute Immature Granulocyte (auto 0.01 T/MM3 0.00-0.03 09/09/2016 6: 09/09/2016 8:12pm Icterus Index < 2 0-7 09/09/2016 6:09/09/2016 7:12pm Chemistry Specimen Hemolysis < 15 0-25 09/09/2016 6:09/09/2016 7 :12pm 0-25: Specimen Exhibited No Hemolysis. Turbidity < 20 0-20 09/09/2016 6:09/09/2016 7:12pm Sodium Level 149 MEQ/L H 134-144 09/09/2016 6:09/09/2016 7:12pm Potassium Level 3.3 MEQ/L L 3.6-5 09/09/2016 6:09/09/2016 7:12pm Chloride Level 102 MEQ/L 98-107 09/09/2016 6:09/09/2016 7:12pm Carbon Dioxide Level 28 MEQ/L 22-30 09/09/2016 6:09/09/2016 7: 12pm Anion Gap 19 MEQ/L H 5-15 09/09/2016 6:09/09/2016 7:12pm Blood Urea Nitrogen 6.0 MG/DL L 9-20 09/09/2016 6:09/09/2016 7: 12pm Creatinine 0.7 MG/DL L 0.8-1.5 09/09/2016 6:09/09/2016 7:12pm BUN/Creatinine Ratio 9 RATIO 6-09/09/2016 6:09/09/2016 7:12pm Glomerular Filtration Rate Calc 115 09/09/2016 6:09/09/2016 7: 12pm Glucose Level 118 MG/DL H 75-110 09/09/2016 6:09/09/2016 7:12pm Calculated Osmolality 285 MOSM/KG H 261-280 09/09/2016 6:2016 7:12pm Calcium Level 9.9 MG/DL 8.4-10.2 09/09/2016 6:09/09/2016 7:12pm Total Bilirubin 1.00 MG/DL 0.20-1.30 09/09/2016 6:09/09/2016 7: 12pm Alkaline Phosphatase 105 U/L 38-126 09/09/2016 6:09/09/2016 7: 12pm Total Protein 7.8 G/DL 6.3-8.2 09/09/2016 6:56pm 09/09/2016 7:12pm Albumin 4.3 G/DL 3.5-5.0 09/09/2016 6:56pm 09/09/2016 7:12pm Globulin 3.5 G/DL 2.4-3.6 09/09/2016 6:56pm 09/09/2016 7:12pm Albumin/Globulin Ratio 1.2 RATIO 1.1-2.2 09/09/2016 6:56pm 09/09/2016 7 :12pm Aspartate Amino Transf (AST/SGOT) 208 U/L H 17-59 09/09/2016 6:56pm 7:12pm Alanine Aminotransferase (ALT/SGPT) 88 U/L H 21-72 09/09/2016 6:56pm 7:12pm Lipase 495 U/L H 23-300 09/09/2016 6:56pm 09/09/2016 7:23pm Alcohol, Quantitative 426 MG/DL <10 09/09/2016 6:56pm 09/09/2016 7: 20pm Procedures No known history of procedures. Encounters Encounter Location Arrival/Admit Date Discharge/Depart Date Attending Provider Departed Emergency Room [facility] 09/09/16 6:39pm 09/09/16 9: 00pm RAFAT PRITCHETT MD Departed Emergency Room [facility] 08/31/16 3:41pm 08/31/16 6: 09pm JESUS LISA MD Recent Diagnosis
== END 2016-09-09 21:00 | disposition home or self-care (01) ==
LOC: ED 18:39
DX: K85.20 Alcohol induced acute pancreatitis without necrosis or infection (principal); T51.0X1A Toxic effect of ethanol, accidental (unintentional), initial encounter; D69.59 Other secondary thrombocytopenia; Y92.009 Unspecified place in unspecified non-institutional (private) residence as the place of occurrence of the external cause; F10.10 Alcohol abuse, uncomplicated; Y90.8 Blood alcohol level of 240 mg/100 ml or more
CPT/HCPCS: 80053; 80307; 83690; 85025

== ENCOUNTER 2016-09-11 22:47 | Emergency (ER) | payer SELFPAY ==
[~2016-09-11] VITALS: Ht 180.3 cm; Wt 59.8 kg
[2016-09-11 22:47] VITALS: TEMP 97.6; Ht 180.3 cm; Wt 59.8 kg
[~2016-09-11 22:47] MED LIST changes: -CHOL200024 PO; -CYAN10009 PO; +FAMO-137 PO; -MULT1TAB69 PO; +NO ROUTINE MEDS; +ONDA4TAB7 PO
[2016-09-11] MEDS ORDERED: NORMAL SALINE 1,000 ML IV ONE (23:02)
[2016-09-11 23:11] LABS: BASOPHILS # (AUTO) 0.1 T/MM3 (0-0.2); BASOPHILS % (AUTO) 2.4 % (0-2); EOSINOPHILS # (AUTO) 0.1 T/MM3 (0-0.5); EOSINOPHILS % (AUTO) 3.7 % (0-4); HCT - HEMATOCRIT 36.6 % (41-53); HGB - HEMOGLOBIN 12.5 GM/DL (13.5-17.5); LYMPHOCYTES # (AUTO) 1.5 T/MM3 (1-4.8); LYMPHOCYTES % (AUTO) 61.2 % (23-45); MEAN CORPUSCULAR HGB 34.9 UUG (26-34); MEAN CORPUSCULAR HGB CONC(MCHC 34.2 GM/DL (31-37); MEAN CORPUSCULAR VOLUME 102.2 UM3 (80-100); MONOCYTES # (AUTO) 0.2 T/MM3 (0-0.8); MONOCYTES % (AUTO) 8.6 % (0-9.0); NEUTROPHILS #(AUTO)-ABSOLUTE 0.6 T/MM3 (1.8-7.7); NEUTROPHILS % (AUTO) 24.1 % (33-66); RED BLOOD COUNT 3.58 M/MM3 (4.50-5.90); WBC - WHITE BLOOD COUNT 2.5 T/MM3 (4.5-11.0)
[2016-09-11] MEDS ORDERED: G.I. COCKTAIL 30ml PO ONE (23:15)
[2016-09-11] MEDS ORDERED: FAMOTIDINE 20 MG in FAMOTIDINE 20mg IVPB 50 ML IV ONE (23:15)
[2016-09-11] MEDS ORDERED: ONDANSETRON 4mg/2ml INJECTION IV ONE (23:15)
[2016-09-11 23:16] LABS: ANION GAP 18 MEQ/L (5-15); BUN/CREATININE RATIO 11 RATIO (6-26); CALCIUM 8.8 MG/DL (8.4-10.2); CHLORIDE 105 MEQ/L (98-107); CO2 - CARBON DIOXIDE 30 MEQ/L (22-30); CREATININE 0.7 MG/DL (0.8-1.5); GLOMERULAR FILTRATION RATE 115; GLUCOSE 93 MG/DL (75-110); LIPASE 276 U/L (23-300); POTASSIUM 3.6 MEQ/L (3.6-5); SODIUM 153 MEQ/L (134-144)
--- NOTE | 2016-09-12 00:07 | ERPDOC ---
Departure Disposition Decision Date: Sep 12, 2016 Disposition Decision Time: 00:12 Disposition: 01 DISCHARGED HOME, SELF-CARE Impression Impression Impression: Primary Impression: Alcoholism Additional Impression: Volume depletion Severity: Moderate Condition: Stable Seen By: Physician only Referrals: MIGUEL LAY APRN (Family) 1 Day Patient Instructions: Abuse of Alcohol (ED) Problems/Meds/Labs Reviewed?: Yes Medications reviewed and manag: Yes Additional Instructions: Take Pepcid 20 mg, 2 tablets every day to reduce stomach acid Zofran 4 mg one tablet every 6 hours as needed for nausea Continue to decrease your alcohol intake as much as possible Contact Kenia Valadez for out patient alcohol rehab assistance. If you need help with detox while intoxicated call or present to [facility] ( [facility]) [phone] - [address], [address], [place]. Follow up care ordered?: Yes Mental Status: Alert, Occasionally Confused HPI - Abdominal Pain General Chief Complaint: Substance Abuse Stated Complaint: N/V Time Seen by Provider: 23:02 Source: patient, family History/Exam Limitations: no limitations HPI - Abdominal Pain Initial Comments 61yo man presented to the ER tonight by EMS for abd pain. Pt is well-known to this ER; he has a long h/o alcohol abuse and dependence and alcoholic pancreatitis. He was recently seen for mild pancreatitis; was discharged with appropriate meds to help his pain/sx. Pt c/o 'dry heaves' despite food/water/ alcohol ingestion. Pt has not followed up with his PCM as directed by ER physicians on numerous occasions. Pt is generally nonadherent with treatment plans. States that the only reason he came to the ER was because his live-in GF called EMS for his chronic sx. Occurred At: home Onset: Constant Duration: other Pain Scale: Now & Worst: 4/10 Quality: burning, cramping Location: epigastric Radiation: back Activities at Onset: none Associated Symptoms: nausea/vomiting Hx of Similar Symptoms: Yes Allergies: Coded Allergies: No Known Allergies (Unverified , 09/12/16) Past History Patient Medical History (1) Alcoholism Past Medical History Respiratory: asthma GI: pancreatitis Infectious: hepatitis C Psychological: alcohol abuse Surgical History Denies Surgeries Vaccines Hx Tetanus, Diptheria, Pertuss: No (UNKNOWN) Social History Does patient use chewing tobac: No Second Hand Exposure: No Substance Use Type: does not use Alcohol Intake: daily Last Drink: hours (ago) Review of Systems GI Upper Abdomen: nausea, pain, see HPI All other Systems All Other Systems: Reviewed and Negative Physical Exam General General Nourishment: well nourished, well developed, appears stated age, no acute distress, adult, cachectic General Body Habitus: disheveled Vitals and Pain Weight: Kilograms: Height (feet): 5 Height (inches): 11.00 Triage Pain Scale: RN VS reviewed by Provider: Yes Normal Exams: Head: Normocephalic w/o trauma Eyes: Pupils are PERRLA w/ EOMI, No scleral icterus, irritation ENMT: No facial trauma, nasal exudates, pharyngeal erythema Neck: Full range of motion, without adenopathy, JVD Lymphatic: No lymphadenopathy Musculoskeletal: No tenderness, or deformity noted Integumentary: No rashes, hives Neurologic: Patient is alert, and oriented Psychiatric: Patient exhibits, appropriate attention Respiratory (brief) Respiratory: FOUND: clear all almodovar, equal bilaterally, symmetrical, NOT FOUND : rales, wheezes Cardiovascular (brief) Cardiac: FOUND: regular rate, regular rhythm, NOT FOUND: click, gallop, murmur , pedal edema, peripheral edema, rub Capillary Refill: <2 sec Pulses: all distal extremities, equal, strong Abdomen (brief) Abdominal Brief: FOUND: bowel normo active x4, soft, NOT FOUND: distended, hepatosplenomegaly, pulsatile mass, tender Integumentary (brief) Comments Ecchymosis below left eye. Differential Diagnoses Considering: Constipation, Hepatitis, IBS, Ileus, Pancreatitis Progress Results/Orders Orders Lab Results Medications Current ED Medications Sodium Chloride (Normal Saline IV) 1,000 ml @ 0 mls/hr Q0M ONCE IV Last administered on 09/11/16 23:54; Start 09/11/16 at 23:02; Stop 09/11/16 at 23:05 ; Status DC Ondansetron HCl (Zofran) 4 mg O ONCE IV Last administered on 09/11/16 23:54; Start 09/11/16 at 23:15; Stop 09/11/16 at 23:16; Status DC Pharmacy Profile Note 30 ml 30 ml O ONCE PO Last administered on 09/11/16 23: 55; Start 09/11/16 at 23:15; Stop 09/11/16 at 23:16; Status DC Famotidine/ Famotidine (PEPCID 20 mg INJ./PEPCID 20mg in NS 50ml) 52 ml @ 100 mls/hr O ONCE IV Last administered on 09/11/16t 23:55; Start 09/11/16 at 23:15 ; Stop 09/11/16 at 23:46; Status DC Progress Progress Pt without complaint today. He has been drinking, but is not interested in cessation at this time. He has had trouble with gastritis and nausea for the last month, but this is better today. No evidence of pancreatitis. His anemia and thrombocytopenia are improved today. Pt is dehydrated - this has been correct with IVF. Discussed pt's dx, prognosis, tx, and need for f/u with PCM. Pt voiced understanding. F/u with [facility] later this [facility]. CAMRYN PACHECO DO Sep 12, 2016 00:07 Normal Saline (Normal PHA 09/11/16 Complete Saline Iv) 23:02 Ondansetron Inj PHA 09/11/16 Complete (Zofran) 23:15 G.I. Cocktail PHA 09/11/16 Complete (/Maalox/Lidocaine 23:15 Famotidine (Pepcid 20 PHA 09/11/16 Complete Mg Inj.) 23:15 Lab Results Laboratory Tests Test 09/11/16 22:59 White Blood Count 2.5T/MM3 Red Blood Count 3.58M/MM3 Hemoglobin 12.5GM/DL Hematocrit 36.6% Mean Corpuscular Volume 102.2UM3 Mean Corpuscular Hemoglobin 34.9UUG Mean Corpuscular Hemoglobin Concent 34.2GM/DL RDW Standard Deviation 46.5FL Platelet Count 34T/MM3 Mean Platelet Volume 11.0UM3 Immature Granulocyte % (Auto) 0.0% Neutrophils (%) (Auto) 24.1% Lymphocytes (%) (Auto) 61.2% Monocytes (%) (Auto) 8.6% Eosinophils (%) (Auto) 3.7% Basophils (%) (Auto) 2.4% Absolute Immature Granulocyte (auto 0.00T/MM3 Absolute Neutrophils (auto) 0.6T/MM3 Absolute Lymphocytes (auto) 1.5T/MM3 Absolute Monocytes (auto) 0.2T/MM3 Absolute Eosinophils (auto) 0.1T/MM3 Absolute Basophils (auto) 0.1T/MM3 Turbidity < 20 Sodium Level 153MEQ/L Potassium Level 3.6MEQ/L Chloride Level 105MEQ/L Carbon Dioxide Level 30MEQ/L Anion Gap 18MEQ/L Blood Urea Nitrogen 8.0MG/DL Creatinine 0.7MG/DL Glomerular Filtration Rate Calc 115 BUN/Creatinine Ratio 11RATIO Glucose Level 93MG/DL Calculated Osmolality 292MOSM/KG Calcium Level 8.8MG/DL Icterus Index < 2 Lipase 276U/L Chemistry Specimen Hemolysis < 15 Medications Current ED Medications Sodium Chloride (Normal Saline IV) 1,000 ml @ 0 mls/hr Q0M ONCE IV Last administered on 09/11/16 23:54; Start 09/11/16 at 23:02; Stop 09/11/16 at 23:05 ; Status DC Ondansetron HCl (Zofran) 4 mg O ONCE IV Last administered on 09/11/16 23:54; Start 09/11/16 at 23:15; Stop 09/11/16 at 23:16; Status DC Pharmacy Profile Note 30 ml 30 ml O ONCE PO Last administered on 09/11/16 23: 55; Start 09/11/16 at 23:15; Stop 09/11/16 at 23:16; Status DC Famotidine/ Famotidine (PEPCID 20 mg INJ./PEPCID 20mg in NS 50ml) 52 ml @ 100 mls/hr O ONCE IV Last administered on 09/11/16 23:55; Start 09/11/16 at 23:15 ; Stop 09/11/16 at 23:46; Status DC Progress Progress Pt without complaint today. He has been drinking, but is not interested in cessation at this time. He has had trouble with gastritis and nausea for the last month, but this is better today. No evidence of pancreatitis. His anemia and thrombocytopenia are improved today. Pt is dehydrated - this has been correct with IVF. Discussed dx's, prognosis, tx, and need for f/u with PCM. Pt voiced understanding. F/u with [facility] later this week. CAMRYN PACHECO DO Sep 12, 2016 00:07
--- NOTE | 2016-09-12 00:30 | NUR ---
Report Report given to Gabriela Russell RN
[2016-09-12 00:41] LABS: BLOOD, URINE NEGATIVE (NEGATIVE); COLOR,URINE YELLOW (YELLOW); LEUKOCYTE ESTERASE ,URINE NEGATIVE (NEGATIVE); NITRITE,URINE NEGATIVE (NEGATIVE); UROBILINOGEN,URINE 0.2 EU/DL (NORMAL)
--- NOTE | 2016-09-12 01:25 | NUR ---
COMMUNICATION MULTIPLE ATTEMPTS HAVE BEEN MADE TO CONTACT [employer], PATIENT'S SIGNIFICANT OTHER SO THAT SHE CAN ARRANGE TRANSPORTATION HOME FOR THE PATIENT, SHE IS NOT ANSWERING HER PHONE.
[2016-09-12 01:32] VITALS: BP 126/76; PULSE 64; RESP 16; O2SAT 98
--- NOTE | 2016-09-12 01:32 | NUR ---
DEPART PT IS DISCHARGED AT THIS TIME, INSTRUCTIONS ARE REVIEWED AND UNDERSTANDING IS VOICED. PT HAS NO RIDE HOME AT THIS TIME AND IS UNABLE TO GET [employer]OLD OF THE "WOMAN HE LIVES WITH" TO COME PICK HIM UP. PT HAS NO SHOES OR JACKET AND DUE TO THE COLD CONDITIONS OUTSIDE HE IS UNABLE TO WALK HOME AT THIS TIME. PT WILL BE ALLOWED TO SLEEP IN HIS BED UNTIL HIS RIDE CAN BE CONTACTED.
== END 2016-09-12 01:32 | disposition home or self-care (01) ==
LOC: ED 22:47
DX: E86.9 Volume depletion, unspecified (principal); F10.20 Alcohol dependence, uncomplicated; T51.0X1A Toxic effect of ethanol, accidental (unintentional), initial encounter; Y90.9 Presence of alcohol in blood, level not specified
CPT/HCPCS: 80048; 81003; 83690; 85025